=== PATIENT | male | born 1980 | race Caucasian/White ===

== ENCOUNTER 2025-03-11 16:20 | Emergency (ER) | payer SELFPAY ==
[2025-03-11 16:24] VITALS: BP 139/93
--- NOTE | 2025-03-11 17:18 | ED.GENMED ---
History of Present Illness
General
Chief Complaint: Psychiatric Problem
Source: patient
Exam Limitations: none
Time Seen by Provider: 03/11/25 17:01
History of Present Illness
History of Present Illness:
44-year-old male here voluntarily with passive suicidal thoughts worsening over the past several days. 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 He was most recently in [facility] unit couple weeks ago and
has been regressing since then. He states he is under a lot of stress financially and is unemployed. He states he found himself holding a knife in his hand and rubbed it against his wrist but realized it was sharp and stopped. He has never tried
to hurt himself intentionally. He is having these thoughts recurring. He is accompanied by his brother. He denies thoughts of harming others. He denies hallucinations.
Phy Exam
Physical Exam
Physical Exam:
General: Well appearing male NAD
HEENT: NC/AT
Psychiatric: Admits to large amounts of stress and associated suicidal thoughts. Denies hallucinations or thoughts of harming others. Logical thought process
Heart: RRr, no murmurs
Lungs; CTA bilaterally
Ext: no cyanosis or edema
Course
Orders/Labs/Results
Orders:
Orders
03/11/25 17:08
Crisis Consult Urgent
Reason for Consult: SI
03/11/25 17:38
Alcohol Urgent
Complete Blood Count/With Diff Urgent
Comprehensive Metabolic Panel Urgent
03/11/25 18:12
Drug Screen, Urine [Urine Drug Abuse Screen] Urgent
Date Specimen was Collected: 03/11/25
Time Specimen was Collected: 17:18
Abnormal Lab Results
03/11/25
17:38
MCH 31.8 H pg
(27.0-31.0)
Absolute Monos (auto) 0.7 H 10^3/uL
(0.1-0.6)
Lymphocytes % 19.5 L %
(20.5-51.1)
03/11/25 17:38
03/11/25 17:38
Vital Signs
Initial and Last Documented VS:
Initial Vital Signs
Temp Pulse Resp BP Pulse Ox
98.8 F 97 20 139/93 97
03/11/25 16:24 03/11/25 16:24 03/11/25 16:24 03/11/25 16:24 03/11/25 16:24
Last Documented Vital Signs
Temp Pulse Resp BP Pulse Ox
98.8 F 97 20 139/93 97
03/11/25 16:24 03/11/25 16:24 03/11/25 16:24 03/11/25 16:24 03/11/25 16:24
MDM/Problems Addressed
Differential Diagnosis Includes:
Patient with suicidal thoughts. He is accompanied by his brother here voluntarily. He is interested in inpatient treatment. Crisis consult placed. Medical screening labs ordered
*Critical Care Note
Total Time (30-74mins, 75-104mins- exclusive of procedures): Not Applicable
Update Note
Update Note:
Labs reviewed medically he is cleared for psychiatric disposition. Crisis team involved and found a bed for him at [facility]. He is here voluntarily. His brother will take him there
ED Attending Note
-
Portions of this chart may have been created with voice recognition software.� Occasional wrong word or��sound alike� substitutions may have occurred due to the inherent limitations of voice recognition software.
Discharge Plan
Departure
Patient Disposition: Home (Routine Discharge)
Date of Disposition: 03/11/25
Time of Disposition: 21:37
Patient with high blood pressure during this ER visit?: No
Discharge Problem:
Suicidal ideation
Referrals:
NONE,* [Family Provider] -
Activity Restrictions/Additional Instructions:
Please seek further treatment at [facility] as planned
Interventions
Interventions:
*Risk Screen - Suicide Last Done: 03/11/25 16:21
*General Assessment Last Done: 03/11/25 16:24
*Neglect/Abuse Screening Last Done: 03/11/25 16:24
*ED- Fall Risk Assessment Last Done: 03/11/25 18:05
*ED COVID-19 Vaccine History Last Done: 03/11/25 18:05
ED-Psychological Assessment Last Done: 03/11/25 18:05
Discharge Date and Time
Print Language: SLOVENIAN
[2025-03-11 17:50] LABS: % Basophils 0.4 % (0-2); % Eosinophils 0.8 % (0-6); % Immature Granulocytes 0.1 % (0-0.5); % Lymphocytes 19.5 % (20.5-51.1); % Monocytes 8.4 % (1.7-9.3); % Neutrophils 70.8 % (42.2-75.2); Absolute Eosinophils 0.1 10^3/uL (0-0.7); Absolute Lymphocytes 1.5 10^3/uL (1.2-3.4); Absolute Monocytes 0.7 10^3/uL (0.1-0.6); Absolute Neutrophils 5.6 10^3/uL (1.4-6.5); Hematocrit 44.4 % (39.0-52.0); Hemoglobin 15.6 g/dL (13.0-18.0); Mean Corp Hgb Conc. 35.1 g/dL (33.0-37.0); Mean Corpuscular Hgb 31.8 pg (27.0-31.0); Mean Corpuscular Volume 90.6 fL (80.0-94.0); Mean Platelet Volume 8.2 fL (7.4-10.4); Nucleated Red Blood Cells % 0 % (-); Platelet Count 237 10^3/uL (130-400); Red Cell Dist. Width 12.1 % (11.5-14.5); White Blood Cell Count 7.9 10^3/uL (4.8-10.8)
[2025-03-11 18:05] VITALS: BMI 24.9
[2025-03-11 18:08] LABS: ALT (SGPT) 22 U/L (0-50); AST (SGOT) 21 U/L (17-59); Albumin 4.3 g/dl (3.5-5.0); Alkaline Phosphatase 70 U/L (38-126); Blood Urea Nitrogen 15 mg/dl (9-20); Calcium 9.4 mg/dl (8.4-10.2); Carbon Dioxide 28 mmol/L (22-30); Chloride 106 mmol/L (98-107); Estimated Creatinine Clearance 114 ml/min; Glucose 90 mg/dl (70-99); Potassium 4.1 mmol/L (3.5-5.1); Sodium 140 mmol/L (135-145); Total Bilirubin 0.6 mg/dl (0.2-1.3); Total Protein 6.9 g/dl (6.3-8.2); eGFR > 60.00
[2025-03-11 18:10] LABS: Alcohol None Detected
[2025-03-11 18:50] LABS: Amphetamines Negative (Negative); Barbiturates Negative (Negative); Benzodiazepines Negative (Negative); Buprenorphine Negative (Negative); Cocaine Negative (Negative); Marijuana Negative (Negative); Methadone Negative (Negative); Methamphetamines Negative (Negative); Opiates Negative (Negative); Phencyclidine Negative (Negative); Tricyclic Antidepressants Negative (Negative)
== END 2025-03-11 21:40 | disposition home or self-care (01) ==
LOC: EMR 16:20
PROVIDERS: Physician Assistant; EMERGENCY PHYSICIAN Emergency Medicine
DX: R45.851 Suicidal ideations (principal)
CPT/HCPCS: 99283; 80053; 80306; 82077; 85025